=== PATIENT | female | born 1985 | race African-American/Black ===

== ENCOUNTER 2016-09-18 22:47 | Emergency (ER) | payer OTHER ==
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
[~2016-09-18 22:47] MED LIST: ERYTHROMYCIN O3.5 GM OD; IBUPROFEN800 MG PO; PEN-VEE K PO; ULTRAM PO; ZOFRAN ODT4 MG PO
== END 2016-09-19 00:36 | disposition home or self-care (01) ==
LOC: CED 22:47
DX: S00.83XA Contusion of other part of head, initial encounter (principal); F17.210 Nicotine dependence, cigarettes, uncomplicated; W22.8XXA Striking against or struck by other objects, initial encounter; Y92.9 Unspecified place or not applicable
CPT/HCPCS: 70486; 84703; 99284

== ENCOUNTER 2016-10-08 02:14 | Emergency (ER) | payer OTHER | END 2016-10-09 09:30 | disposition left against medical advice (07) | LOC: CED 02:14 | DX: Z53.21 Procedure and treatment not carried out due to patient leaving prior to being seen by health care provider (principal) ==